=== PATIENT | male | born 1970 | race Caucasian/White ===

== ENCOUNTER 2017-07-12 09:20 | Outpatient (CLI) | payer OTHER ==
[2013-02-04 19:43] VITALS: BP 122/78
== END 2017-07-12 09:21 ==
LOC: LAB 09:20
PROVIDERS: ATTEND Family Medicine
DX: R73.9 Hyperglycemia, unspecified (principal)
CPT/HCPCS: 36415; 83036

== ENCOUNTER 2018-07-19 09:16 | Outpatient (CLI) | payer OTHER ==
[2013-02-04 19:43] VITALS: BP 122/78
[2018-07-19 10:12] LABS: eGFR (Non-African) > 60
== END 2018-07-19 09:17 ==
LOC: LAB 09:16
PROVIDERS: ATTEND Physician Assistant
DX: R73.9 Hyperglycemia, unspecified (principal); I10 Essential (primary) hypertension; Z13.6 Encounter for screening for cardiovascular disorders
CPT/HCPCS: 36415; 80053; 80061; 83036

== ENCOUNTER 2019-07-04 11:01 | Outpatient (CLI) | payer OTHER ==
[2013-02-04 19:43] VITALS: BP 122/78
[2019-07-04 11:27] LABS: A1C 5.9 % (<5.7)
[2019-07-04 11:32] LABS: HDL 53 mg/dL (>40); eGFR (Non-African) > 60
== END 2019-07-04 11:03 ==
LOC: LAB 11:01
PROVIDERS: ATTEND Family Medicine
DX: R73.9 Hyperglycemia, unspecified (principal); I10 Essential (primary) hypertension
CPT/HCPCS: 36415; 80053; 80061; 83036